=== PATIENT | male | born 1980 | race Caucasian/White ===

== ENCOUNTER 2022-06-20 23:44 | Emergency (ER) | payer SELFPAY ==
[~2022-06-20] VITALS: Ht 177.8 cm; Wt 85.8 kg
[2022-06-20 23:54] VITALS: BP 125/85
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
[2022-06-21] MEDS ORDERED: CEPH500T PO (00:58)
== END 2022-06-21 00:51 | disposition home or self-care (01) ==
LOC: ER FS 23:53
DX: S01.311A Laceration without foreign body of right ear, initial encounter (principal); Z28.310 Unvaccinated for COVID-19; Y04.8XXA Assault by other bodily force, initial encounter; Y93.72 Activity, wrestling
CPT/HCPCS: 12013